=== PATIENT | female | born 1990 | race Caucasian/White ===

== ENCOUNTER 2016-12-29 20:29 | Observation (INO) | payer OTHER ==
[2016-12-29] MEDS ORDERED: Carboprost Tromethamine 250 MCG/1 ML Amp IM PRN (20:40)
[2016-12-29] MEDS ORDERED: Nalbuphine 10 MG/1 ML Vial IVPUSH PRN (20:40)
[2016-12-29] MEDS ORDERED: Sodium Chloride 0.9% 2.5 ML Syringe FLUSH PRN (20:40)
[2016-12-29] MEDS ORDERED: Methylergonovine 0.2 MG/1 ML Amp IM PRN (20:40)
[2016-12-29] MEDS ORDERED: Sodium Chloride 0.9% 10 ML Syringe FLUSH PRN (20:40)
[2016-12-29] MEDS ORDERED: Water For Irrigation,Sterile 1,000 ML Container IRR SCH (20:45)
[2016-12-29] MEDS ORDERED: Misoprostol 25 MCG (1/4 of 100 MCG) Tab VAG SCH (20:45)
[2016-12-29] MEDS: Lactated Ringers 1,000 ML IV SCH (20:45)
[2016-12-29] MEDS ORDERED: Oxytocin/Lactated Ringers 20 UNIT/1,000 ML BAG IV SCH (20:45)
[2016-12-29] MEDS: Misoprostol 200 MCG Tab VAG SCH (21:46)
[2016-12-30] MEDS: Misoprostol 200 MCG Tab VAG SCH (02:02)
[2016-12-30] MEDS: Butorphanol 1 MG/ML SDV IVPUSH PRN ×2 (02:32→03:36)
[2016-12-30] MEDS: Lactated Ringers 1,000 ML IV SCH ×4 (04:21→08:27)
--- NOTE | 2016-12-30 04:32 | HP ---
DATE OF : 1990 PRIMARY CARE PHYSICIAN: None PCP CHIEF COMPLAINT: Eighteen week demise. HISTORY OF PRESENT ILLNESS: Smitha is a 26-year-old, G4, P2-0-1-2, at approximately 19 weeks gestational age by dating who presented to clinic two days ago for routine OB visit. She had noticed that she had no significant decreased movement since Sunday and during her appointment no heart tones were able to be auscultated. Ultrasound confirmed an approximately 18 week demise. No obvious anomalies were noted. The patient has denies any contractions, vaginal bleeding. She denies any fever or rashes. She has otherwise been feeling well. PAST MEDICAL HISTORY: Hypothyroidism. PAST SURGICAL HISTORY: In 2011, section. In May 2014, left salpingectomy for ectopic . MEDICATIONS: 1. Levothyroxine 88 mcg daily. 2. vitamins daily. ALLERGIES: No known drug allergies. 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 Menses regular every 31 days. She was not on contraception at time of conception. LMP of August 16, 2016. Her dating was by LMP consistent with a 9.4 week ultrasound. FAMILY HISTORY: Grandparents are alive and well. Her mother has diabetes as well as hypertension. She has 6 siblings, who are alive and healthy. SOCIAL HISTORY: She denies tobacco, alcohol, or illicit drug usage. She is currently , but the father of the baby is with her and is supportive and this is a new relationship. PHYSICAL EXAMINATION: GENERAL: Temp 98.7, blood pressure 116/62, pulse of 85, and respiratory rate of 16. CARDIAC: Regular rate and rhythm. PULMONARY: Clear to auscultation bilaterally. ABDOMEN: Nontender. Good bowel sounds present. EXTREMITIES: No pedal edema. +2 deep tendon reflexes bilaterally. BACK: No CVA tenderness. GENITOURINARY: Cervix is closed, thick, -4 station. ASSESSMENT: 1. Approximately 18 week demise. 2. Hypothyroidism. PLAN: The patient is admitted, routine admit labs plus her TSH, free T4 are being drawn. I had a discussion with the patient regarding overall how she is doing emotionally, and she really is doing quite well. Her significant other is present and they are interactive with good questions. I explained the course of management which will be Cytotec vaginally and Pain Management as she requests. I explained the time of delivery, attempts at delivery will usually occur fairly quickly. I may not be present at time of delivery, but will be present shortly thereafter for evaluation of the fetus with them. I explained that at times the placenta does not deliver readily, however, we will give time to deliver and if after some time as long as she is stable and bleeding is stable, if she still has not delivered the placenta, then at times we need to surgically remove it. We discussed whether or not they would request chromosomal testing for the fetus, there are still considering this option and explained the course of management typically after delivery occurs especially management of fetus within the pathology department. All questions were answered and the patient is comfortable on plan of care. SOHEILA SAUCEDO /[id number]
--- NOTE | 2016-12-30 04:45 | PCM.PREANE ---
Preanesthetic Assessment - Anesthesia/Transfusion/Family Hx Anesthesia History: Prior Anesthesia Without Reaction Transfusion History: No Prior Transfusion(s) - Review of Systems General: No Symptoms Pulmonary: No Symptoms Cardiovascular: No Symptoms Gastrointestinal: No symptoms Neurological: No Symptoms Other: Reports: None - Physical Assessment Height: 5 ft 2 in Weight: 64.864 kg ASA Class: 2 Mental Status: Alert & Oriented x3 Airway Class: Mallampati = 2 Dentition: Reports: Normal Dentition Thyro-Mental Finger Breadths: 3 Mouth Opening Finger Breadths: 3 ROM/Head Extension: Full Lungs: Clear to auscultation, Normal respiratory effort Cardiovascular: Regular Rate, Regular Rhythm - Lab Values: Laboratory Last Values WBC 9.60 K/uL (4.0-11.0) 12/29/16 21: RBC 3.70 M/uL (4.30-5.90) L 12/29/16 21:18 Hgb 12.2 g/dL (12.0-16.0) 12/29/16 21:18 Hct 35.1 % (36.0-46.0) L 12/29/16 21:18 MCV 94.9 fL (80.0-98.0) 12/29/16 21:18 MCH 33.0 pg (27.0-32.0) H 12/29/16 21: MCHC 34.8 g/dL (31.0-37.0) 12/29/16 21:18 RDW Std Deviation 44.6 fl (28.0-62.0) 12/29/16 21:18 RDW Coeff of Sony 13 % (11.0-15.0) 12/29/16 21: Plt Count 165 K/uL (150-400) 12/29/16 21:18 MPV 10.90 fL (7.40-12.00) 12/29/16 21:18 Neut % (Auto) 67.3 % (48.0-80.0) 12/29/16 21: Lymph % (Auto) 25.7 % (16.0-40.0) 12/29/16 21:18 [place] % (Auto) 5.5 % (0.0-15.0) 12/29/16 21:18 Eos % (Auto) 1.4 % (0.0-7.0) 12/29/16 21:18 Baso % (Auto) 0.1 % (0.0-1.5) 12/29/16 21:18 Neut # (Auto) 6.5 K/uL (1.4-5.7) H 12/29/16 21:18 Lymph # (Auto) 2.5 K/uL (0.6-2.4) H 12/29/16 21:18 [place] # (Auto) 0.5 K/uL (0.0-0.8) 12/29/16 21:18 Eos # (Auto) 0.1 K/uL (0.0-0.7) 12/29/16 21:18 Baso # (Auto) 0.0 K/uL (0.0-0.1) 12/29/16 21:18 Nucleated RBC % 0.0 /100WBC 12/29/16 21:18 Nucleated RBCs # 0 K/uL 12/29/16 21:18 TSH 3rd Generation 4.44 uIU/mL (0.47-5.0) 12/29/16 21:18 Blood Type O POSITIVE 12/29/16 21:18 Antibody Screen NEGATIVE 12/29/16 21:18 - Allergies Allergies/Adverse Reactions: Allergies Allergy/AdvReac Type Severity Reaction Status Date / Time No Known Allergies Allergy Verified 12/29/16 21:45 - Acknowledgements Anesthesia Type Planned: Epidural Pt an Appropriate Candidate for the Planned Anesthesia: Yes Alternatives and Risks of Anesthesia Discussed w Pt/Guardian: Yes Pt/Guardian Understands and Agrees with Anesthesia Plan: Yes PreAnesthesia Questionnaire HEENT History: Reports: None Cardiovascular History: Reports: None Respiratory History: Reports: None Gastrointestinal History: Reports: GERD Genitourinary History: Reports: None 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 , : 4 Para: 2 LMP (Approximate): Musculoskeletal History: Reports: None Neurological History: Reports: None Psychiatric History: Reports: None Endocrine/Metabolic History: Reports: Hypothyroidism Hematologic History: Reports: None Immunologic History: Reports: None Oncologic (Cancer) History: Reports: None Dermatologic History: Reports: None - Infectious Disease History Infectious Disease History: Reports: None - Past Surgical History Female Surgical History: Reports: Other (See Below) Other Female Surgeries/Procedures: salphingiectomy - SUBSTANCE USE Smoking Status *Q: Never Smoker Second Hand Smoke Exposure: No Recreational Drug Use History: No - CURRENT (IN HOUSE) MEDS Current Meds: Current Medications Butorphanol Tartrate (Stadol) 1 mg IVPUSH Q3H PRN PRN Reason: Pain (mild 1-3) Last Admin: 12/30/16 03:36 Dose: 1 mg Carboprost Tromethamine (Hemabate Ds) 250 mcg IM ASDIRECTED PRN PRN Reason: Post Hemorrhage Lactated Ringer's (Ringers, Lactated) 1,000 mls @ 125 mls/hr IV ASDIRECTED [facility] Last Infusion: 12/30/16 04:23 Dose: 999 mls/hr Oxytocin/Lactated Ringer's (Pitocin In Lr 20 Units/1,000 Ml) 20 unit in 1,000 mls @ 2,997 mls/hr IV ASDIRECTED [facility] PRN Reason: 999 MUNITS/MIN Methylergonovine Maleate (Methergine) 0.2 mg IM ASDIRECTED PRN PRN Reason: Post Hemorrhage Misoprostol (Cytotec) 400 mcg VAG Q4H [facility] Stop: 12/30/16 04:46 Last Admin: 12/30/16 02:02 Dose: 400 mcg Nalbuphine HCl (Nubain) 10 mg IVPUSH Q1H PRN PRN Reason: Pain (severe 7-10) Sodium Chloride (Saline Flush) 10 ml FLUSH ASDIRECTED PRN PRN Reason: Keep Vein Open Sodium Chloride (Saline Flush) 2.5 ml FLUSH ASDIRECTED PRN PRN Reason: Keep Vein Open Sterile Water (Sterile Water For Irrigation) 1,000 ml IRR ASDIRECTED [facility]
[2016-12-30] MEDS ORDERED: Ropivacaine HCl/PF 100 ML ONE (04:54)
[2016-12-30] MEDS ORDERED: fentaNYL 100 MCG/2 ML SDV ONE (04:54)
[2016-12-30] MEDS ORDERED: Ondansetron 4 MG/2 ML SDV IVPUSH PRN (07:08)
[2016-12-30] MEDS ORDERED: Acetaminophen 500 MG Tab PO PRN ×2 (11:14)
[2016-12-30] MEDS ORDERED: Bisacodyl 10 MG Supp RECTAL PRN (11:14)
[2016-12-30] MEDS ORDERED: Lanolin 100% Cream 7 GM Tube TOP PRN (11:14)
[2016-12-30] MEDS ORDERED: Witch Hazel Medicated Pads 40/Jar TOP PRN (11:14)
[2016-12-30] MEDS ORDERED: Benzocaine/Menthol 20%-0.5% Spray 78 GM Cannister TOP PRN (11:14)
[2016-12-30] MEDS ORDERED: oxyCODONE 5 MG Tab PO PRN (11:14)
[2016-12-30] MEDS ORDERED: Ibuprofen 400 MG Tab PO PRN (11:14)
[2016-12-30] MEDS ORDERED: Docusate Sodium 100 MG Cap PO PRN (11:14)
[2016-12-30] MEDS ORDERED: Ibuprofen 800 MG Tab PO PRN (11:14)
--- NOTE | 2017-01-01 06:17 | OR ---
SURGEON: Pastora Cerda M.D. DATE OF PROCEDURE: 12/30/2016 PREOPERATIVE DIAGNOSES: 1. An 18-week intrauterine . 2. demise. POSTOPERATIVE DIAGNOSIS: 1. An 18-week intrauterine . 2. demise. PROCEDURE: Spontaneous vaginal delivery, intact perineum. ESTIMATED BLOOD LOSS: 100 mL. ANESTHESIA: Epidural. FINDINGS: Nonviable approximately 18-week male fetus. The fetus was edematous with some skin sloughing noted. There was a triple tight nuchal cord observed which was the most likely etiology for the demise. No gross anomalies were observed. The placenta delivered intact and en-caul. DISPOSITION: Fetus with parents in LDRP. PROCEDURE IN DETAIL: Smitha is a 26-year-old, G4, P2, A1 at approximately 19 week's gestational age by dating who presented for her routine OB visit on 12/27/2016 and a demise measuring approximately 18 weeks was observed. Therefore, she presented yesterday evening for Cytotec induction due the demise. The patient responded nicely to the Cytotec and became increasingly uncomfortable. She did undergo regional anesthesia and became more comfortable. This morning, shortly before 11:00 a.m., the gestational sac and the fetus was found to be well within the vaginal vault. The patient pushed once and was able to deliver en-caul fetus, gestational sac, and placenta. Amniotomy was performed. Fetus was delivered from the gestational sac. There was a tight nuchal cord x3 noted. Fetus was edematous and nonviable. It appears to be a male fetus. No gross anomalies were observed. Fetus was wrapped in a blanket and given to the mother with significant other at her side. Pastoral care service has been offered and they are considering this. The placenta will be sent to pathology. The vagina was inspected and no lacerations were noted. Hemostasis was evident. The patient is stable at this time, and hemostasis evident. She will remain in LDRP with fetus and significant other. SOHEILA SAUCEDO /[id number]
--- NOTE | 2017-01-01 21:46 | PCM48HPAN ---
Post Anesthesia Note - EVALUATION WITHIN 48HRS OF ANESTHETIC Vital Signs in Normal Range: Yes Patient Participated in Evaluation: Yes Respiratory Function Stable: Yes Airway Patent: Yes Cardiovascular Function Stable: Yes Hydration Status Stable: Yes Pain Control Satisfactory: Yes Nausea and Vomiting Control Satisfactory: Yes Mental Status Recovered: Yes
== END 2016-12-30 13:50 | disposition home or self-care (01) ==
LOC: MW.OBCHECK 20:29 → MW.OB 20:37 → MW.OBCHECK 20:40
PROVIDERS: ADMIT Obstetrics & Gynecology; ATTEND Obstetrics & Gynecology
PROC: 10E0XZZ Delivery of Products of Conception, External Approach (ICD-10-PCS; principal; 2016-12-30)
DX: O02.1 Missed abortion (principal); Z37.1 Single stillbirth; Z3A.18 18 weeks gestation of pregnancy; E03.9 Hypothyroidism, unspecified; Z90.79 Acquired absence of other genital organ(s); Z98.890 Other specified postprocedural states; Z79.899 Other long term (current) drug therapy
CPT/HCPCS: 59409; 84443; 85025; 86850; 86900; 86901; A9270; J0595; J7120; 88305; 96361; 96374; 96376; G0378